=== PATIENT | female | born 1950 | race Caucasian/White ===

== ENCOUNTER 2018-08-29 21:56 | Inpatient (IN) | payer OTHER ==
[~2018-08-29] VITALS: Ht 154.9 cm; Wt 94.4 kg
[2018-08-29] MEDS ORDERED: methylPREDNISolone SOD SUCC 125 MG/2 ML VL ONE (22:03)
[2018-08-29] MEDS ORDERED: cefTRIAXone 1GM/50ML D5W 50 ML IV ONE (22:15)
[2018-08-29] MEDS ORDERED: IPRATROPIUM BROM 0.5 MG/2.5ML INH SOL NEB ONE (22:15)
[2018-08-29] MEDS ORDERED: ALBUTEROL SULF 2.5 MG/0.5ML(0.5%) NEB SOLN NEB ONE (22:15)
[2018-08-29] MEDS ORDERED: LEVOFLOXACIN 750MG 150 ML IV ONE (22:15)
[2018-08-29] MEDS ORDERED: methylPREDNISolone SOD SUCC 125 MG/2 ML VL IV ONE (22:15)
[2018-08-29 22:31] LABS: Basophils # (auto) 0 uL; Eosinophils # (auto) 0 uL; Hemoglobin 8.3 g/dL (12.2-16.2); Red Blood Cells 2.95 10^6/uL (4.0-5.20)
[2018-08-29 22:32] LABS: Hematocrit 33.4 % (36.0-46.0); Lymphocytes # (auto) 0.5 uL; Lymphocytes % (auto) 1.8 % (10.0-50.0); Mean Corpuscular Hemoglobin 28.2 pg (28.0-32.0); Mean Corpuscular Hgb Conc. 24.9 g/dL (32.0-36.0); Mean Corpuscular Volume 113.3 fL (80.0-100.0); Monocytes # (auto) 0.2 uL; Monocytes % (auto) 0.8 % (0.0-12.0); Neutrophils # (auto) 25.3 uL; Neutrophils % (auto) 97.4 % (37.0-80.0); Nucleated Red Blood Cells % 0.3 %; Platelet Count (auto) 273 10^3/uL (140-450); Red Cell Distribution Width 19.1 % (11.8-14.3)
[2018-08-29] MEDS: MAGNESIUM SULFATE 1GM/100ML 100 ML IV SCH ×2 (23:15→23:23)
[2018-08-29] MEDS ORDERED: FUROSEMIDE 40 MG/4 ML VIAL IV ONE (23:30)
[2018-08-30] VITALS (10 sets, daily range): BP systolic 100–119; BP diastolic 48–73
[2018-08-30] MEDS ORDERED: ACETAMINOPHEN 325 MG TAB PO ONE (00:15)
[2018-08-30 00:31] LABS: BUN/Creatinine Ratio 36.1
[2018-08-30 00:32] LABS: Albumin 1.7 g/dL (3.4-5.0); Bilirubin, Total 0.3 mg/dL (0.2-1.0); Total Protein 5.1 g/dL (6.4-8.2)
[2018-08-30 00:33] LABS: Potassium 4.8 mmol/L (3.5-5.1)
[2018-08-30 01:52] LABS: Urine Bacteria MANY /hpf (None Seen); Urine Blood TRACE /uL (Negative); Urine Specific Gravity 1.016 (1.001-1.035); Urine WBC 19 /hpf (0 - 5)
[2018-08-30] MEDS ORDERED: ACETAMINOPHEN 650 MG RECT SUPP PR ONE (02:15)
[2018-08-30] MEDS ORDERED: ACETAMINOPHEN 325 MG TAB PO PRN (02:30)
[2018-08-30] MEDS ORDERED: TEMAZEPAM 15 MG CAP PO PRN (02:30)
[2018-08-30] MEDS ORDERED: ALBUTEROL SULF 2.5 MG/0.5ML(0.5%) NEB SOLN NEB PRN (02:30)
[2018-08-30] MEDS ORDERED: MORPHINE SULFATE 10 MG/ML INJ 1ML SDV IV PRN (02:30)
[2018-08-30] MEDS ORDERED: ONDANSETRON HCL 4 MG/2 ML VIAL IV PRN (02:30)
[2018-08-30] MEDS ORDERED: AZITHROMYCIN 500MG/ 250ML 250 ML IV ONE (02:30)
[2018-08-30] MEDS ORDERED: HYDROcodone-ACET 5/325MG TAB PO PRN (02:30)
[2018-08-30] MEDS ORDERED: NITROGLYCERIN 0.4 MG SL TAB SL PRN (02:30)
[2018-08-30 03:36] LABS: Lactic Acid w/Reflex 2.7 mmol/L (0.4-2.0)
[2018-08-30] MEDS ORDERED: TPN PER PHARMACY 0 ML IV SCH (05:30)
--- NOTE | 2018-08-30 05:50 | NUR ---
Admit to [facility]mitted to [facility] via gurney on quality assurance monitor body, and portable 02. Patient transfered to bed, connected to unit monitoring and oxygen, and weighed by bedscale. Patient oriented to Rosario ornelas RN, unit, room, bed, and unit policies regarding patient care and visiting hours. All questions and concerns addressed, patient verbalized understanding. NOTE: HAYLEE AT BEDSIDE.
[2018-08-30] MEDS ORDERED: BENZ1CAP24 PO (06:49)
[2018-08-30] MEDS ORDERED: PRO10T PO (06:50)
[2018-08-30] MEDS ORDERED: FURO20TA PO (06:50)
[2018-08-30] MEDS ORDERED: ONDA4TAB5 PO (06:51)
[2018-08-30] MEDS ORDERED: PANT40TA2 PO (06:51)
[2018-08-30] MEDS ORDERED: POTA10TA51 PO (06:52)
[2018-08-30] MEDS: FUROSEMIDE 20 MG TAB PO SCH ×2 (07:17→18:49)
--- NOTE | 2018-08-30 07:35 | NUR ---
CARE ENDORSED TO BETO EM PATIENT IN NO DISTRESS/SOB ON BIPAP LAB AT BEDSIDE CALL LIGHT WITHIN EASY REACH
--- NOTE | 2018-08-30 08:00 | NUR ---
Opening Shift Note Assumed care of patient @ 0730, awake and alert. No S/S of pain. Patient SOB, on 3.5 LPM oxygen via oxymizer, saturation 99%. See interventions for complete physical assessment. Unable to assess back, patient refused to turn at this time because of her recent Hysterectomy done 07/06. Bed locked on low position, side rails up x2, bed alarms on at all times, call damon within reach, instructed on POC and to call for assist PRN, will continue to monitor for changes Q1hr and PRN.
[2018-08-30 08:20] LABS: Albumin 1.7 g/dL (3.4-5.0); Calcium 7.3 mg/dL (8.5-10.1); Magnesium 2.6 mg/dL (1.6-2.6)
[2018-08-30 08:25] LABS: BUN/Creatinine Ratio 42.9; Bilirubin, Total 0.3 mg/dL (0.2-1.0); Phosphorus 3.7 mg/dL (2.5-4.90); Pre Albumin 8.8 mg/dL (20.0-40.0); Total Protein 5.3 g/dL (6.4-8.2)
[2018-08-30] MEDS ORDERED: ASPirin 81 mg TAB PO SCH (10:00)
[2018-08-30] MEDS: FAMOTIDINE 20 MG TAB PO SCH ×2 (10:00→21:44)
--- NOTE | 2018-08-30 10:52 | NUR ---
Noted healed wound on patient's LT elbow, wound photograph taken. Covered with optifoam dressing. Will continue to monitor.
--- NOTE | 2018-08-30 12:27 | NUR ---
Nutrition Assessment/consult Notes please see attached link fro complete assessment Est. Needs ABW [id number] kcal (20-23 kcal/kgBW), 70-91 gms pro (1.0-1.3 gms/kgBW r/t severe hypoalb). Will continue to monitor pertinent labs and reassess nutrient need prn Addendum: 08/30/18 at [address] Amended: Links added.
--- NOTE | 2018-08-30 15:05 | NUR ---
Dr Negro at bedside to assess patient. Updated on patient's status. Made aware patient refused Aspirin. Received verbal order to stop Aspirin. Received verbal order to do CT scan of chest, abdomen and pelvis with IV contrast, culture blood, urine and sputum. Read back and verified. Will carry out orders.
--- NOTE | 2018-08-30 15:25 | NUR ---
Influenza A and B swab sent to lab.
--- NOTE | 2018-08-30 16:05 | NUR ---
Urine sample sent to lab
--- NOTE | 2018-08-30 16:44 | NUR ---
D dimer came back 4.40. Paged Dr Negro and called back. Made aware of D dimer level. Received telephone order for BLE US and CTA with IV contrast. Read back and verified. Will facilitate.
--- NOTE | 2018-08-30 17:55 | NUR ---
Sputum sample sent to lab.
[2018-08-30] MEDS ORDERED: DEXTROSE (50%) 50ML SYRG IV SCH (18:00)
[2018-08-30] MEDS: InsuLIN REG 1unit/0.01ml Soln (100units/ml) SC SCH (18:00)
[2018-08-30] MEDS: ACCU-CHEK COMFORT CURVE STRIP VI SCH (18:04)
--- NOTE | 2018-08-30 18:07 | NUR ---
Patient's accucheck 142mg/dl. 2 units of Insulin held at this time. Patient no oral intake, refused to eat. To start TPN at 1999.
--- NOTE | 2018-08-30 18:30 | NUR ---
Venous US being done at bedside. Plan to bring patient down to CT after US.
--- NOTE | 2018-08-30 19:50 | NUR ---
Opening Shift Note Assumed care of patient, awake and alert. No S/S of distress/SOB or pain. Andie Olmos at bedside. Instructed on POC and to call for assist PRN, will continue to monitor for changes Q1hr and PRN.
[2018-08-30] MEDS ORDERED: TPN PER PHARMACY IV NR ×9 (20:00)
[2018-08-30] MEDS ORDERED: IODIXANOL 320MG/ML 100ML BTL IV ONE (20:52)
--- NOTE | 2018-08-30 20:58 | NUR ---
PATIENT TAKEN DOWN FOR CT ANGIO VIA BED BY WESTON MARIN RN AND HAYLEE EM
[2018-08-30] MEDS ORDERED: cefTRIAXone 1GM/50ML D5W 50 ML IV SCH (21:00)
[2018-08-30] MEDS ORDERED: AZITHROMYCIN 500MG/ 250ML 250 ML IV SCH (21:00)
--- NOTE | 2018-08-30 21:21 | NUR ---
SPOKE WITH SHAHEEN CASE MANAGEMENT AT [facility] UPDATED HER ON PATIENT STATUS ALL QUESTIONS AND CONCERNS ADDRESSED
--- NOTE | 2018-08-30 21:35 | NUR ---
PATIENT BACK FROM RADIOLOGY NO DISTRESS/SOB
[2018-08-30] MEDS ORDERED: ATORVASTATIN 20 MG TAB PO SCH (22:00)
[2018-08-31] VITALS (7 sets, daily range): BP systolic 92–124; BP diastolic 43–71
[2018-08-31] MEDS: ACCU-CHEK COMFORT CURVE STRIP VI SCH ×4 (00:14→17:38)
--- NOTE | 2018-08-31 04:20 | NUR ---
PT SEEN SLEEPING ON 3L OXIMIZER,SPO2 95%. BS CLEAR DIMINISHED. NO RESP DISTRESS NOTED. PRN NEB TX NOT INDICATED AT THIS TIME.
--- NOTE | 2018-08-31 04:50 | NUR ---
[facility] CARE OFFERED PATIENT BED BATH AND LINEN CHANGE THIS MORNING PATIENT REFUSED, REFUSES TO BE TURNED IN BED CONTINUE CARE
[2018-08-31] MEDS: FUROSEMIDE 20 MG TAB PO SCH ×2 (05:46→17:41)
[2018-08-31] MEDS: InsuLIN REG 1unit/0.01ml Soln (100units/ml) SC SCH ×4 (05:47→17:38)
[2018-08-31 05:51] LABS: Eosinophils # (auto) 0 uL; Lymphocytes # (auto) 0.4 uL; Lymphocytes % (auto) 1.6 % (10.0-50.0); Monocytes # (auto) 0.1 uL; Monocytes % (auto) 0.4 % (0.0-12.0)
[2018-08-31 05:53] LABS: Basophils # (auto) 0.1 uL; Basophils % (auto) 0.3 % (0.0-2.0); Hematocrit 23.1 % (36.0-46.0); Hemoglobin 7.5 g/dL (12.2-16.2); Mean Corpuscular Hgb Conc. 32.6 g/dL (32.0-36.0); Mean Corpuscular Volume 88.8 fL (80.0-100.0); Neutrophils # (auto) 26.5 uL; Neutrophils % (auto) 97.7 % (37.0-80.0); Nucleated Red Blood Cells % 0.3 %; Platelet Count (auto) 210 10^3/uL (140-450); Red Cell Distribution Width 17.6 % (11.8-14.3); White Blood Cell 27.1 10^3/uL (4.4-10.8)
[2018-08-31 06:09] LABS: Potassium 4.1 mmol/L (3.5-5.1)
[2018-08-31 06:18] LABS: Albumin 1.7 g/dL (3.4-5.0); BUN/Creatinine Ratio 51.5; Bilirubin, Total 0.3 mg/dL (0.2-1.0); Calcium 7.5 mg/dL (8.5-10.1); Magnesium 2.5 mg/dL (1.6-2.6); Total Protein 5.3 g/dL (6.4-8.2)
--- NOTE | 2018-08-31 06:58 | NUR ---
END OF SHIFT PATIENT CURRENTLY RESTING IN BED WITH EYES CLOSED NO S/S OF DISTRESS SOB OR PAIN ,POX 94%. WILL ENDORSE CARE TO DAY SHIFT RN
--- NOTE | 2018-08-31 07:25 | NUR ---
CARE ENDORSED TO DAY SHIFT MARIA ANTONIA AVILES
--- NOTE | 2018-08-31 08:00 | NUR ---
OPENING NOTE PATIENT AWAKE ALERT AND ORIENTED X 4. PATIENT SITTING UP IN BED NO DISTRESS NOTED. PHYSICAL ASSESSMENT PERFORMED DOCUMENTED IN [facility] WITH VITAL SIGNS. PATIENT TURNED AND REPOSITIONED. WILL CONTINUE TO FOLLOW THROUGH WITH PLAN OF CARE.
--- NOTE | 2018-08-31 09:27 | NUR ---
COLLISION WORKER PAGED TO NOTIFIY THEM OF TRANSFER TO [place]., COLLISION WORKER NOT HERE ON THE WEEKENDS
--- NOTE | 2018-08-31 09:44 | NUR ---
PT ASSESSED FOR PRN HHN TX. PT IS ON 3L OXYMIZER, SPO2 97%, HR 116. NO S/S OF RESPIRATORY DISTRESS. BREATHINGTX NOT INDICATED AT THIS TIME. WILL CONTINUE TO MONITOR.
--- NOTE | 2018-08-31 09:58 | NUR ---
PATIENT INFORMATION FAXED TO [facility] [phone]
[2018-08-31] MEDS: FAMOTIDINE 20 MG TAB PO SCH (10:00)
--- NOTE | 2018-08-31 10:29 | NUR ---
UPDATED [place] [employer] WHE[employer] MAKER SHAHEEN [phone] ON PATIENT CURRENT STATUS/REPORT/ PATIENT PREFERENCE OF [facility].
--- NOTE | 2018-08-31 12:53 | NUR ---
PATIENT WENT UP TO CHAIR WITH PHYSICAL THERAPY.
--- NOTE | 2018-08-31 17:40 | NUR ---
orders received from [facility] PATIENT TO [facility]LEMET[facility] BED FOR [place] TRANSFER.
--- NOTE | 2018-08-31 18:22 | NUR ---
RT NOTE: PT ASSESSED BY RT @ THIS TIME. PT ON 3L OXYMIZER (38%), SPO2 94%, HR 108. PRN TX NOT INDICATED @ THIS TIME. NO SOB OR DISTRESS NOTED. FAMILY @ BEDSIDE. WILL CONT TO MONITOR PT.
--- NOTE | 2018-08-31 18:46 | NUR ---
SHAHEEN FROM [place] CALLED. PATIENT HAS A BED AT [facility] ROOM 6[address] ACCEPTING MD JIM , PICK TIME FOR 8PM.
--- NOTE | 2018-08-31 18:55 | NUR ---
REPORT GIVEN TO LINDA Mott RN AT [facility] [phone], FOR PATIENT TRANSPORT TO ROOM 634 ACCEPTING MD JIM. [facility] HELPER TIME ARRANGED FOR 8PM. HAYLEE AT BEDSIDE, AND PATIENT AWARE.
[2018-08-31] MEDS ORDERED: TPN PER PHARMACY IV NR ×9 (20:00)
--- NOTE | 2018-08-31 22:21 | NUR ---
Transport at bedside. Pt offered pain medication for transport but denies pain and states no medication needed. Pump brought by transport not working so dial-a-flow provided for transport for TPN. Pt stable at this time. Being transported out by julio césar with [facility] RN Bautista Vang. Pt transported at 2242.
== END 2018-08-31 22:40 | disposition short-term general hospital (02) | DRG 871 ==
LOC: EDBD 21:56 → ER 22:00 → OVERFLOW 08-30 02:31 → DOU IN ICU 08-30 05:49
PROVIDERS: ADMIT Nurse Practitioner; ATTEND Nurse Practitioner
PROC: 5A09357 Assistance with Respiratory Ventilation, Less than 24 Consecutive Hours, Continuous Positive Airway Pressure (ICD-10-PCS; principal; 2018-08-29)
DX: A41.9 Sepsis, unspecified organism (principal); J18.9 Pneumonia, unspecified organism; J96.21 Acute and chronic respiratory failure with hypoxia; N39.0 Urinary tract infection, site not specified; R74.8 Abnormal levels of other serum enzymes; E78.5 Hyperlipidemia, unspecified; I50.9 Heart failure, unspecified; D64.9 Anemia, unspecified; E88.09 Other disorders of plasma-protein metabolism, not elsewhere classified; I70.0 Atherosclerosis of aorta; J45.909 Unspecified asthma, uncomplicated; Z82.0 Family history of epilepsy and other diseases of the nervous system; Z85.42 Personal history of malignant neoplasm of other parts of uterus; Z90.710 Acquired absence of both cervix and uterus
CPT/HCPCS: 36415; 36600; 51702; 71045; 71275; 80053; 81001; 82040; 82805; 82962; 83605; 83735; 83880; 84100; 84478; 84484; 85025; 85379; 87040; 87070; 87081; 87086; 87205; 87804; 93970; 94660; 96365; 96367; 96375; 99291; G0378; J0696; J1815; J1956; J7131; Q9967